=== PATIENT | male | born 1985 | race Caucasian/White ===

== ENCOUNTER 2019-06-07 13:40 | Outpatient (CLI) | payer OTHER, BC, SELFPAY ==
--- NOTE | 2019-06-07 13:47 | XR_ITS ---
WS: [id number] HAND RIGHT TECHNIQUE: 3 views of the right hand CLINICAL INFORMATION: PAIN IN JOINT COMPARISON: None. FINDINGS: Normal metacarpals. Normal MCP joint. Metacarpal heads are normal in appearance. Normal PIP and DIP j oints. No evidence of acute fracture or dislocation. Radiocarpal joint: Normal. Carpal bones: Normal. XR/XR hand RT min 3V* [id number] IMPRESSION: Normal right hand.
== END 2019-06-07 13:41 | disposition home or self-care (01) ==
PROVIDERS: Family Provider Internal Medicine; PCP Electrodiagnostic Medicine; Visit Provider Electrodiagnostic Medicine
DX: M79.641 Pain in right hand (principal)
CPT/HCPCS: 73130

== ENCOUNTER 2021-07-20 01:39 | Observation (INO) | payer BC, SELFPAY ==
[2021-07-20] VITALS (16 sets, daily range): BP systolic 106–139; BP diastolic 59–87; PULSE 68–87; RESP 16–20; TEMP 36.6–36.8; O2SAT 94–100; BMI 24.3; BMI 25.8
--- NOTE | 2021-07-20 02:30 | CTR_ITS ---
PROCEDURE INFORMATION: Exam: CT Abdomen And Pelvis With Contrast Exam date and time: 07/20/2021 3:11 AM Age: 35 years old Clinical indication: Abdominal pain; Localized; Right lower quadrant (rlq); Prior surgery; Surgery date: 6+ months; Surgery type: Hernia; Additional info: Abd pain TECHNIQUE: Imaging protocol: Computed tomography of the abdomen and pelvis with contrast. Radiation optimization: All CT scans at this facility use at least one of these dose optimization techniques: automated exposure control; mA and/or kV adjustment per patient size (includes targeted exams where dose is matched to clinical indication); or iterative reconstruction. Contrast material: OMNI 300; Contrast volume: 95 ml; Contrast route: INTRAVENOUS (IV); COMPARISON: No relevant prior studies available. RADIATION DOSE METRICS: Total DLP (mGy-cm): 1522.93 FINDINGS: Liver: Normal. No mass. Gallbladder and bile ducts: Normal. No calcified stones. No ductal dilation. Pancreas: Normal. No ductal dilation. Spleen: Normal. No splenomegaly. Adrenal glands: Normal. No mass. Kidneys and ureters: There are small peripelvic cysts seen within the left kidney, the largest measuring approximately 1.9 cm AP dimension. A tiny 4.8 mm cyst is seen in the anterior aspect of the right kidney. Stomach and bowel: Unremarkable. No obstruction. No mucosal thickening. Appendix: The appendix is visualized and is normal in configuration. Intraperitoneal space: Unremarkable. No free air. No significant fluid collection. Arteries: Unremarkable. No abdominal aortic aneurysm. Lymph nodes: Unremarkable. No enlarged lymph nodes. Urinary bladder: Unremarkable as visualized. Reproductive: Unremarkable as visualized. Bones/joints: Unremarkable. No acute fracture. Soft tissues: Unremarkable. CT/CT abdomen pelvis w con* [id number] IMPRESSION: 1. There are no acute abdominal findings. 2. Stable peripelvic cysts present within the left kidney, the largest measuring 1.9 cm. No further workup needed. COMMENTS: Consistent with the [employer] [place] [employer]'s Incidental Findings Committee white paper (J Am Carina Radiol 2018): Any incidental renal lesion less than 1 cm or classified as too small to characterize, or any incidental cystic renal lesion characterized as simple-appearing, is likely benign. No follow-up imaging is recommended for these lesions per consensus recommendations based on imaging criteria.
--- NOTE | 2021-07-20 02:31 | W.ED.ABDPA2 ---
HPI - Abdominal Pain General: Chief Complaint: Abdominal Pain Stated Complaint: abd pain Time Seen by Provider: 07/20/21 01:41 Source: patient Mode of arrival: ambulatory Limitations: no limitations History of Present Illness: 35-year-old male who states that throughout the day he has been having some abdominal pain with getting much worse at 11 he states it is in his right lower quadrant sharp in nature he rates his pain a 7 out of 10 currently denies any worsening improving factors he has had some nausea denies any vomiting denies any diarrhea. Denies any fevers no abdominal surgeries in the past. Associated Symptoms: Denies chills, dysuria and fever(s) Review of Systems Const: Denies: fever(s), chills, body aches or change in appetite Eyes: Denies: blurry vision or eye discomfort ENMT: Denies: throat pain or dental pain Card: Denies: chest pain Resp: Denies: dyspnea GI: Reports: abdominal pain : Denies: dysuria Musc: Denies: neck pain or back pain Skin/Breast: Denies: rash Neuro: Denies: headache(s) Psych: Denies: depression Juan Carlos/Lymph: Denies: easy bruising All/Imm: Denies: urticaria PFSH ED PFSH: Medical History No pertinent past medical history Social History (Updated 07/20/21 @ 02:32 by Berta Collins MD) Substance/Drug Use: never Physical Exam Const: COMMON NORMALS: no acute distress, patient oriented x3 and healthy appearing HENMT: COMMON NORMALS: normocephalic and atraumatic HEAD & SCALP: normocephalic and atraumatic Eye: COMMON NORMALS: Equal, round and reactive pupils present and EOMs intact bilaterally PUPIL: Yes Equal, round and reactive pupils present Neck/C-Spine: COMMON NORMALS: full ROM and supple Chest: COMMONS NORMALS: normal inspection of the chest and normal palpation of entire chest wall Resp: COMMON NORMALS: normal respiratory effort, No retractions, No use of accessory muscles and clear to auscultation bilaterally AUSCULTATION: clear to auscultation bilaterally Cardio: COMMON NORMALS: regular rate, regular rhythm and No murmurs present (Cardio) RATE: regular rate RHYTHM: regular rhythm GI: COMMON NORMALS: Normal to inspection, nondistended, normoactive bowel sounds present, Soft to palpation and no masses PALPATION: Yes Soft to palpation and Yes Tenderness to palpation present (GI) Details: RLQ Extremity: COMMON NORMALS: normal to inspection and full ROM Neuro: COMMON NORMALS: patient oriented x3, moves all extremities and no focal motor deficits Psych: COMMON NORMALS: mental status grossly normal, Normal thought process present and cooperative THOUGHT PROCESS: Normal thought process present Skin: COMMON NORMALS: no rashes or lesions noted and no wounds GENERAL SKIN EXAM: no rashes or lesions noted Course Vital Signs: Vital signs: Vital Signs Temperature 97.8 F 07/20/21 01:47 Pulse Rate 87 07/20/21 05:30 Respiratory Rate 18 07/20/21 05:30 Blood Pressure 135/81 07/20/21 05:30 Pulse Oximetry 98 07/20/21 05:30 MDM - Abdominal Pain Medical Decision Making Patient presents here with abdominal pain he is quite tender on exam to his right lower quadrant he continued of tenderness even after morphine CT scan was normal white count was normal he has no testicle pain no dysuria still concern for possible appendicitis with his physical exam findings I did speak to the surgeon on-call and will admit for observation for his abdominal pain. Lab Data : 07/20/21 02:15 07/20/21 02:15 Labs/Radiology: Radiology Impressions Abdomen/Pelvis CT 07/20/21 02:30 IMPRESSION: 1. There are no acute abdominal findings. 2. Stable peripelvic cysts present within the left kidney, the largest measuring 1.9 cm. No further workup needed. COMMENTS: Consistent with the [place] [employer]'s Incidental Findings Committee white paper (J Am Carina Radiol 2018): Any incidental renal lesion less than 1 cm or classified as too small to characterize, or any incidental cystic renal lesion characterized as simple-appearing, is likely benign. No follow-up imaging is recommended for these lesions per consensus recommendations based on imaging criteria. Laboratory Results WBC 8.7 10^3/uL (4.0-10.0) 07/20/21 02:15 RBC 5.11 10^6/uL (4.1-5.3) 07/20/21 02:15 Hgb 15.4 g/dL (11.7-16.6) 07/20/21 02:15 Hct 45.9 % (42.0-52.0) 07/20/21 02:15 MCV 89.8 fl (80-94) 07/20/21 02:15 MCH 30.1 pg (28.0-34.0) 07/20/21 02:15 MCHC 33.6 g/dL (30.0-36.0) 07/20/21 02:15 RDW 12.1 % (12.1-15.1) 07/20/21 02:15 Plt Count 241 10^3/cmm (130-400) 07/20/21 02:15 MPV 10.4 fL (7.4-10.4) 07/20/21 02:15 Neut % (Auto) 61.5 % 07/20/21 02:15 Lymph % (Auto) 26.9 % 07/20/21 02:15 [place] % (Auto) 8.2 % 07/20/21 02:15 Eos % (Auto) 2.4 % 07/20/21 02:15 Baso % (Auto) 0.8 % 07/20/21 02:15 Neut # (Auto) 5.36 10^3/uL (1.8-7.7) 07/20/21 02:15 Lymph # (Auto) 2.4 10^3/uL (0.8-4.8) 07/20/21 02:15 [place] # (Auto) 0.7 10^3/uL (0.2-0.9) 07/20/21 02:15 Eos # (Auto) 0.2 10^3/uL (0.0-0.8) 07/20/21 02:15 Baso # (Auto) 0.1 10^3/uL (0.0-0.1) 07/20/21 02:15 Nucleated RBC % (auto) 0 % 07/20/21 02:15 Nucleated RBCs # 0.0 /100WBC 07/20/21 02:15 Sodium 140 mmol/L (136-145) 07/20/21 02:15 Potassium 3.8 mmol/L (3.5-5.1) 07/20/21 02:15 Chloride 103 mmol/L (98-107) 07/20/21 02:15 Carbon Dioxide 26 mmol/L (22-29) 07/20/21 02:15 Anion Gap 14.8 (5-19) 07/20/21 02:15 BUN 15 mg/dL (6-20) 07/20/21 02:15 Creatinine 0.8 mg/dL (0.7-1.2) 07/20/21 02:15 GFR Calculation 108.8 mL/min (90-130) 07/20/21 02:15 Glucose 102 mg/dL (65-115) 07/20/21 02:15 Calculated Osmolality 291 mOsm/kg (285-295) 07/20/21 02:15 Calcium 8.6 mg/dL (8.5-10.5) 07/20/21 02:15 Total Bilirubin 0.9 mg/dL (0.15-1.2) 07/20/21 02:15 AST 18 U/L (0-40) 07/20/21 02:15 ALT 15 U/L (0-41) 07/20/21 02:15 Alkaline Phosphatase 82 IU/L (40-130) 07/20/21 02:15 Total Protein 6.7 g/dL (6.6-8.7) 07/20/21 02:15 Albumin 4.6 g/dL (3.5-5.2) 07/20/21 02:15 Globulin 2.1 g/dL (1.3-4.6) 07/20/21 02:15 Lipase 49 U/L (13-60) 07/20/21 02:15 Urine Color Yellow (Yellow) 07/20/21 04:30 Urine Appearance Clear (CLEAR) 07/20/21 04:30 Urine pH 8 (5-7) H 07/20/21 04:30 Ur Specific [place] 1.010 (1.005-1.030) 07/20/21 04:30 Urine Protein Neg (Negative) 07/20/21 04:30 Urine Glucose (UA) Norm (Normal) 07/20/21 04:30 Urine Ketones Negative (Negative) 07/20/21 04:30 Urine Blood Neg (Negative) 07/20/21 04:30 Urine Nitrate Negative (Negative) 07/20/21 04:30 Urine Bilirubin Neg (Negative) 07/20/21 04:30 Prot Sulfosalicylic Acd Negative (Negative) 07/20/21 04:30 Urine Urobilinogen Norm mg/dL (Negative) 07/20/21 04:30 Ur Leukocyte Esterase Negative (Negative) 07/20/21 04:30 Discharge Plan Discharge Patient Disposition: Admitted As Inpatient Clinical Impression: Abdominal pain Coding Level of Care Code ED Electromechanical Technician for Chg Fwd Exam Comprehensive
[2021-07-20 02:42] LABS: Basophils # 0.1 10^3/uL (0.0-0.1); Basophils % 0.8 %; Eosinophils # 0.2 10^3/uL (0.0-0.8); Eosinophils % 2.4 %; Hematocrit 45.9 % (42.0-52.0); Hemoglobin 15.4 g/dL (11.7-16.6); Lymphocytes # 2.4 10^3/uL (0.8-4.8); Lymphocytes % 26.9 %; Mean Corpuscular HGB Conc 33.6 g/dL (30.0-36.0); Mean Corpuscular Hemoglobin 30.1 pg (28.0-34.0); Mean Corpuscular Volume 89.8 fl (80-94); Mean Platelet Volume 10.4 fL (7.4-10.4); Monocytes # 0.7 10^3/uL (0.2-0.9); Monocytes % 8.2 %; Neutrophils # 5.36 10^3/uL (1.8-7.7); Neutrophils % 61.5 %; Nucleated Red Blood Cells % 0 %; Platelet Count 241 10^3/cmm (130-400); Red Blood Count 5.11 10^6/uL (4.1-5.3); Red Cell Distribution Width 12.1 % (12.1-15.1); White Blood Count 8.7 10^3/uL (4.0-10.0)
[2021-07-20] MEDS: sodium chloride 0.9% 1,000 ML 999 ML IV (02:46)
[2021-07-20] MEDS: ondansetron 2 mg/ML SDV 2 mL 4 MG IVP ×3 (02:46→18:25)
[2021-07-20] MEDS: morphine 4 mg/mL SDV 1 mL IVP ×2 (02:46→04:36)
[2021-07-20 03:04] LABS: Alanine Aminotransferase 15 U/L (0-41); Albumin Level 4.6 g/dL (3.5-5.2); Alkaline Phosphatase 82 IU/L (40-130); Aspartate Amino Transferase 18 U/L (0-40); Blood Urea Nitrogen 15 mg/dL (6-20); Calcium 8.6 mg/dL (8.5-10.5); Carbon Dioxide 26 mmol/L (22-29); Chloride 103 mmol/L (98-107); Globulin 2.1 g/dL (1.3-4.6); Glomerular Filtration Rate 108.8 mL/min (90-130); Glucose 102 mg/dL (65-115); Lipase 49 U/L (13-60); Osmolality Calculated 291 mOsm/kg (285-295); Sodium 140 mmol/L (136-145); Total Bilirubin 0.9 mg/dL (0.15-1.2); Total Protein 6.7 g/dL (6.6-8.7)
[2021-07-20 03:09] LABS: Anion Gap 14.8 (5-19)
[2021-07-20 03:10] LABS: Potassium 3.8 mmol/L (3.5-5.1)
[2021-07-20] MEDS: iohexol 300 mg/mL 100 mL Btl IV (03:11)
[2021-07-20 04:57] LABS: Add Urine Microscopic? NO; Charge for UA Resulting for Rev
[2021-07-20 05:17] LABS: Bilirubin Urine Neg (Negative); Blood Urine Neg (Negative); Glucose Urine UA Norm (Normal); Ketones Urine Negative (Negative); Leukocyte Esterase Urine Negative (Negative); Nitrate Urine Negative (Negative); Protein Urine Neg (Negative); Sulfosalicylic Acid Urine Negative (Negative); Urine Appearance Clear (CLEAR); Urine Color Yellow (Yellow); Urobilinogen Urine Norm (Negative); pH Urine 8 (5-7)
--- NOTE | 2021-07-20 06:00 | PC.NURSE ---
0550 attempted to call report, nurse will call me back.
[2021-07-20] MEDS: sodium chloride 0.9% 1,000 ML 100 ML IV ×2 (08:26→21:43)
--- NOTE | 2021-07-20 10:24 | PC.CHAP ---
Pastoral Care Encounter/Spiritual Assessment Type of Contact [] Declined senior svp visit [] Patient/Family/Request visit [] Outpatient visit [] Follow-up visit [] Physician referral [] Code/Alert [x] Routine visit [] Staff referral [] Actively dying [] Patient sleeping [] Family support [] [] Out of room [] Palliative care [] [] Receiving care in room [] Pre-surgical visit [] Trauma [] Long length of stay [] ICU visit [] Other: Relational/Emotional Strength [x] Patient feels connected with others/family/visitors/staff [] Distress [] Loneliness/isolation [] Abandonment Spirituality of Patient [x] Person of Geetha [] Attends Druze of their Geetha [x] Believes in Prayer [] Reads Bible or Spiritism materials [] There are Spiritual issues to be addressed Dry Pan Feeder Interventions [x] Prayer [x] Active listening [] Non-anxious presence [] Spiritual/emotional support [] Crisis/trauma care [x] Spiritual counseling [] Bereavement support [] Provided bereavement packet [] Provided Bible/devotional materials [] Provided toy/stuffed animal, coloring book to patient or family member [] Provided Communion [] Anointing/[place] [] Salvation [x] Completed spiritual assessment [] Other: Impact on Illness or Injury [] Angry [] Fearful [] Anxious [] Often cries [] Exhaustion [] Unable to work [] Unable to attend quaker [] Unable to walk/stand [] Unable to read [] Unable to drive [] Unable to eat/drink [] Unable to sleep [] Unable to be with family [] Patient intubated [] Other: Summary Time spent with patient 15 min
[2021-07-20] MEDS: piperacillin-tazobactam 3.375 GM in sodium chloride 0.9% (plus) 50 ML IV ×2 (14:05→21:42)
--- NOTE | 2021-07-20 15:48 | PM.HP ---
Providers/Chief Complaint Admitting Physician: Andrea Monroe MD Primary Care Provider: Terrence Lincoln DO Chief Complaint: abd pain History of Present Illness Eliazar Paz is a 35 year old male who presented to the ER last night with complaints of right lower quadrant pain, nausea and vomiting. 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 The pain is made worse with movement, did not radiate, no relieving factors. He tried removing his gear since it was pushing against his abdomen and try to lay down but that did not help much and he subsequently started having nausea and vomiting by the time he was in the emergency room. He denies any fevers or chills. Patient denies any history of sick contacts, recent travel. He denies any constipation or diarrhea. No similar episodes in the past. Review of Systems General: Reports: 10 or more systems reviewed and unremarkable except in HPI and below Medications/Allergies Home Medications Medication Instructions Recorded Confirmed Last Taken Type No Known Home Medications 07/20/21 07/20/21 Unknown History Allergies Allergy/AdvReac Type Severity Reaction Status Date / Time No Known Drug Allergies Allergy Unknown Unknown Verified 07/20/21 08:25 PFSH Acute PFSH: Medical History Nephrolithiasis Surgical History Status post left inguinal hernia repair Social History Substance/Drug Use: never Vitals/I&O/Wt Last Vital Signs Temp 97.8 F 07/20/21 01:47 Pulse 74 07/20/21 06:11 Resp 16 07/20/21 06:11 BP 128/76 07/20/21 06:11 Pulse Ox 97 07/20/21 06:11 07/20/21 07/20/21 07/20/21 06:59 14:59 22:59 Intake Total 1000 / 1000 50 / 50 Balance 1000 / 1000 50 / 50 Weight last 48 hrs Weight 170 lb Weight 170 lb Physical Exam Narrative: HEENT: Normocephalic Eye: Sclera /conjunctiva normal Respiratory and chest: Bilateral clear breath sounds on auscultation Cardiovascular: Normal S1 and S2 heart sounds Abdomen: Soft to palpation, tender right lower quadrant with voluntary guarding, no rigidity Neurological: Oriented to place person and time Skin: Intact, no lesions appreciated on gross exam Data : 07/20/21 02:15 07/20/21 02:15 CT Abd/Pel: My impression: CT abdomen pelvis read by overnight radiologist did not show any acute pathology but I reviewed the scan with Dr. Russell. She was able to identify the normal appendix and there was a moderate amount of stools in the right colon but there is also thickening of the ileum in the right lower quadrant. No significant free fluid. A&P Assessment and plan (1) Abdominal pain: 35-year-old male otherwise healthy who presents with right lower quadrant pain, nausea and vomiting since around midnight. His WBC was normal and patient is otherwise afebrile. CT scan abdomen pelvis showed a normal appendix with thickening of small bowel in the right lower quadrant suggesting enteritis. Discussed the findings with the patient and his I will start him on a clear liquid diet and keep him n.p.o. overnight for reassessment. Repeat CBC, BMP in the morning Start Zosyn 3.375 g every 8 Continue IV fluids Ambulate ad abigail. If patient does not clinically improve in the next 24 hours we might have to consider diagnostic laparoscopy Status: Acute Attestations Medical Necessity Statement*: Right lower quadrant pain requiring overnight stay for observation Coding Level of Care Code Acute Programming Intern for Kam Kaminski Diagnoses Abdominal pain R10.9
[2021-07-20] MEDS: pantoprazole 40 mg SDV IVP (20:42)
[2021-07-20] MEDS: acetaminophen 325 mg Tablet 650 MG PO (20:42)
[2021-07-21 02:07] LABS: Basophils % 0.3 %; Eosinophils % 0.6 %; Hematocrit 41.7 % (42.0-52.0); Hemoglobin 13.5 g/dL (11.7-16.6); Lymphocytes # 1.5 10^3/uL (0.8-4.8); Mean Corpuscular HGB Conc 32.4 g/dL (30.0-36.0); Mean Corpuscular Hemoglobin 29.7 pg (28.0-34.0); Mean Corpuscular Volume 91.9 fl (80-94); Mean Platelet Volume 10.8 fL (7.4-10.4); Monocytes # 0.6 10^3/uL (0.2-0.9); Monocytes % 9.4 %; Neutrophils # 4.32 10^3/uL (1.8-7.7); Neutrophils % 66.5 %; Nucleated Red Blood Cells % 0 %; Platelet Count 192 10^3/cmm (130-400); Red Blood Count 4.54 10^6/uL (4.1-5.3); White Blood Count 6.5 10^3/uL (4.0-10.0)
[2021-07-21 02:30] LABS: Anion Gap 12.9 (5-19); Blood Urea Nitrogen 9 mg/dL (6-20); Calcium 8.6 mg/dL (8.5-10.5); Carbon Dioxide 24 mmol/L (22-29); Chloride 108 mmol/L (98-107); Creatinine Clr Calc Pharmacy 146.9066; Glomerular Filtration Rate 126.9 mL/min (90-130); Glucose 99 mg/dL (65-115); Osmolality Calculated 291 mOsm/kg (285-295); Potassium 3.9 mmol/L (3.5-5.1); Sodium 141 mmol/L (136-145)
[2021-07-21 03:54] VITALS: BP 127/71; PULSE 66; RESP 16; TEMP 36.7; O2SAT 98
[2021-07-21] MEDS: sodium chloride 0.9% 1,000 ML 100 ML IV (06:28)
[2021-07-21] MEDS: piperacillin-tazobactam 3.375 GM in sodium chloride 0.9% (plus) 50 ML IV (06:28)
[2021-07-21 08:00] VITALS: BP 127/74; PULSE 72; RESP 18; TEMP 36.7; O2SAT 99
--- NOTE | 2021-07-21 08:05 | PM.PN ---
Subjective Subjective: Patient denies any nausea or vomiting, abdominal pain has improved significantly, he has not taken any opioids since yesterday morning. No BM Medications: Reviewed: Yes Vitals/I&O/Wt Last Vital Signs Temp 98.0 F 07/21/21 03:54 Pulse 66 07/21/21 03:54 Resp 16 07/21/21 03:54 BP 127/71 07/21/21 03:54 Pulse Ox 98 07/21/21 03:54 07/20/21 07/21/21 07/21/21 22:59 06:59 14:59 Intake Total 1288 / 2213 925 / 2213 Balance 1288 / 2213 925 / 2213 Weight last 48 hrs Weight 170 lb Weight 170 lb Physical Exam Narrative: HEENT: Normocephalic Eye: Sclera /conjunctiva normal Abdomen: Soft to palpation, minimally tender, no guarding or rigidity Neurological: Oriented to place person and time Skin: Intact, no lesions appreciated on gross exam Data : 07/21/21 01:23 07/21/21 01:23 A&P Assessment and plan (1) Abdominal pain: 35-year-old male otherwise healthy who presents with right lower quadrant pain, nausea and vomiting since around midnight. His WBC was normal and patient is otherwise afebrile. CT scan abdomen pelvis showed a normal appendix with thickening of small bowel in the right lower quadrant suggesting enteritis. Patient has responded well to bowel rest and IV antibiotics and his abdominal pain is minimal. He should be able to go home today on oral antibiotics Advance to full liquid diet DC IV fluids Status: Resolved Attestations Medical Necessity Statement*: Abdominal pain, resolved DC home today Coding Level of Care Code Acute Food Checkers And Cashiers Supervisor for Chg Fwd Diagnoses Abdominal pain R10.9
[2021-07-21 10:54] VITALS: BP 127/74; PULSE 72; RESP 18; TEMP 36.7; O2SAT 99
--- NOTE | 2021-07-23 09:07 | P.DS_ITS ---
Discharge Providers Date of Admission: 07/20/21 05:37 Date of Discharge: July 21, 2021 Attending Provider at Admission: Andrea Monroe MD Attending Provider at Discharge: Andrea Monroe MD Primary Care Provider: Terrence Lincoln DO Diagnoses at Discharge Discharge Diagnosis (1) Abdominal pain: Status: Resolved Reason for Visit Reason for Visit: abd pain Brief History: Eliazar Paz is a 35 year old male who presented to the ER last night with complaints of right lower quadrant pain, nausea and vomiting.? 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 The pain is made worse with movement, did not radiate, no relieving factors.? He tried removing his gear since it was pushing against his abdomen and try to lay down but that did not help much and he subsequently started having nausea and vomiting by the time he was in the emergency room.? He denies any fevers or chills.? Patient denies any history of sick contacts, recent travel.? He denies any constipation or diarrhea.? No similar episodes in the past. Hospital Course Hospital Course The patient was admitted to the hospital for observation. I reviewed the CT scan with Dr. Russell and a normal appendix was visualized and there was thickened ileum concerning for enteritis. Patient was therefore started on IV Zosyn and placed on bowel rest. Following morning, his abdominal pain had significantly reduced, he was afebrile and tolerating a clear liquid diet. His lab work was normal and his abdominal exam was benign. Patient was therefore discharged home on oral Levaquin and Flagyl and advised to advance diet as tolerated. Physical Exam Narrative: Abdomen: Soft, minimally tender, nondistended Discharge Data Studies Completed and Pending Completed Studies During Hospitalization Category Date Time Status CT abdomen pelvis w con* [id number] Urgent Cat Scan 07/20/21 02:30 Completed Radiology Impressions Abdomen/Pelvis CT 07/20/21 02:30 IMPRESSION: 1. There are no acute abdominal findings. 2. Stable peripelvic cysts present within the left kidney, the largest measuring 1.9 cm. No further workup needed. COMMENTS: Consistent with the [place] [employer]'s Incidental Findings Committee white paper (J Am Carina Radiol 2018): Any incidental renal lesion less than 1 cm or classified as too small to characterize, or any incidental cystic renal lesion characterized as simple-appearing, is likely benign. No follow-up imaging is recommended for these lesions per consensus recommendations based on imaging criteria. Laboratory Results WBC 6.5 10^3/uL (4.0-10.0) 07/21/21 01: RBC 4.54 10^6/uL (4.1-5.3) 07/21/21 01: Hgb 13.5 g/dL (11.7-16.6) 07/21/21: Hct 41.7 % (42.0-52.0) L 07/21/21 01: MCV 91.9 fl (80-94) 07/21/21 01: MCH 29.7 pg (28.0-34.0) 07/21/21: MCHC 32.4 g/dL (30.0-36.0) 07/21/21: RDW 12.0 % (12.1-15.1) L 07/21/21: Plt Count 192 10^3/cmm (130-400) 07/21/21 01: MPV 10.8 fL (7.4-10.4) H 07/21/21 01: Neut % (Auto) 66.5 % 07/21/21 01: Lymph % (Auto) 23.0 % 07/21/21 01: [place] % (Auto) 9.4 % 07/21/21: Eos % (Auto) 0.6 % 07/21/21: Baso % (Auto) 0.3 % 07/21/21: Neut # (Auto) 4.32 10^3/uL (1.8-7.7) 07/21/21 01: Lymph # (Auto) 1.5 10^3/uL (0.8-4.8) 07/21/21: [place] # (Auto) 0.6 10^3/uL (0.2-0.9) 07/21/21 01: Eos # (Auto) 0.0 10^3/uL (0.0-0.8) 07/21/21 01: Baso # (Auto) 0.0 10^3/uL (0.0-0.1) 07/21/21 01:23 Nucleated RBC % (auto) 0 % 07/21/21 01:23 Nucleated RBCs # 0.0 /100WBC 07/21/21 01:23 Sodium 141 mmol/L (136-145) 07/21/21 01:23 Potassium 3.9 mmol/L (3.5-5.1) 07/21/21 01:23 Chloride 108 mmol/L (98-107) H 07/21/21 01:23 Carbon Dioxide 24 mmol/L (22-29) 07/21/21 01:23 Anion Gap 12.9 (5-19) 07/21/21 01:23 BUN 9 mg/dL (6-20) 07/21/21 01:23 Creatinine 0.7 mg/dL (0.7-1.2) 07/21/21 01:23 GFR Calculation 126.9 mL/min (90-130) 07/21/21 01:23 Glucose 99 mg/dL (65-115) 07/21/21 01:23 Calculated Osmolality 291 mOsm/kg (285-295) 07/21/21 01:23 Calcium 8.6 mg/dL (8.5-10.5) 07/21/21 01:23 Total Bilirubin 0.9 mg/dL (0.15-1.2) 07/20/21 02:15 AST 18 U/L (0-40) 07/20/21 02:15 ALT 15 U/L (0-41) 07/20/21 02:15 Alkaline Phosphatase 82 IU/L (40-130) 07/20/21 02:15 Total Protein 6.7 g/dL (6.6-8.7) 07/20/21 02:15 Albumin 4.6 g/dL (3.5-5.2) 07/20/21 02:15 Globulin 2.1 g/dL (1.3-4.6) 07/20/21 02:15 Lipase 49 U/L (13-60) 07/20/21 02:15 Urine Color Yellow (Yellow) 07/20/21 04:30 Urine Appearance Clear (CLEAR) 07/20/21 04:30 Urine pH 8 (5-7) H 07/20/21 04:30 Ur Specific [place] 1.010 (1.005-1.030) 07/20/21 04:30 Urine Protein Neg (Negative) 07/20/21 04:30 Urine Glucose (UA) Norm (Normal) 07/20/21 04:30 Urine Ketones Negative (Negative) 07/20/21 04:30 Urine Blood Neg (Negative) 07/20/21 04:30 Urine Nitrate Negative (Negative) 07/20/21 04:30 Urine Bilirubin Neg (Negative) 07/20/21 04:30 Prot Sulfosalicylic Acd Negative (Negative) 07/20/21 04:30 Urine Urobilinogen Norm mg/dL (Negative) 07/20/21 04:30 Ur Leukocyte Esterase Negative (Negative) 07/20/21 04:30 Vitals Last Vital Signs Temp 98.0 F 07/21/21 10:54 Pulse 72 07/21/21 10:54 Resp 18 07/21/21 10:54 BP 127/74 07/21/21 10:54 Pulse Ox 99 07/21/21 10:54 Discharge Plan Discharge Patient Disposition: Home Condition: Stable Prescriptions: New Colace 100 mg capsule 100 mg PO BID Qty: 30 0RF levofloxacin 750 mg tablet 750 mg PO DAILY 7 Days Qty: 7 0RF metronidazole 500 mg tablet 500 mg PO Q8H 7 Days Qty: 21 0RF Discharge Orders: Discharge Order (Routine); Ordered 07/21/21 Ordered By: Andrea Monroe Referrals: Andrea Monroe MD [Physician] - 08/04/21 8:30 am Terrence Lincoln DO [Primary Care Provider] - 07/29/21 10:15 am ([phone] [facility]) Discharge Diet: Advance as tolerated and Full LIquid Discharge Activity: Resume usual activity Patient Instructions: Metronidazole (By mouth), Laxative, Stool Softeners (By mouth) (Doculax, Colace, Colace Clear, DSS), Levofloxacin (By mouth), Abdominal Pain (ED) Discharge Attestations 2 Time Spent in Discharge Care*: less than 30 min Quality Metrics Clinical Quality Measures [ No reported AMI, CVA or VTE this stay] Coding Level of Care Code Acute Chg FW DC note Diagnoses Abdominal pain R10.9
== END 2021-07-21 09:32 | disposition home or self-care (01) ==
LOC: ER 05:46 → MEDSURG 06:01
PROVIDERS: Admitting Provider Surgery; Emergency Provider Emergency Medicine; PCP Electrodiagnostic Medicine; Visit Provider Surgery
DX: R10.31 Right lower quadrant pain (principal); R11.2 Nausea with vomiting, unspecified
CPT/HCPCS: 36415; 74177; 80048; 80053; 81003; 83690; 85025; 96361; 96365; 96375; 96376; 99285; C9113; G0378; J2270; J2405; J2543; J7030; Q9967

== ENCOUNTER → 2021-08-18 10:14 | Outpatient (BNVA) | payer BC, SELFPAY | PROVIDERS: PCP Electrodiagnostic Medicine; Visit Provider Surgery | DX: R10.31 Right lower quadrant pain (principal) | CPT/HCPCS: 74177; 76705; Q9967 ==